=== PATIENT | female | born 1960 | race Caucasian/White ===

== ENCOUNTER 2018-10-21 13:26 | Emergency (ER) | payer BC ==
--- NOTE | 2018-10-21 14:14 | ED ---
Shortness of Breath - HPI Summary HPI Summary: A 58 y/o female presents to [facility] with a chief complaint of SOB since 10/14/18. She claims that on 10/18/16 she was put on a nebulizer. She was also recently taken off of Flovent and put on Advair and was given an emergency inhaler. At triage she rated her pain as a 0/10 in severity, claiming that she feels throat tightness and also c/o cough. She says that four after she uses the nebulizer, her symptoms worsen. She reports that Kathy Metz has prescribed her nebulizer. She is currently on day 9 of prednisone, which has been tapered down to 20mg currently. 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 Hx of pneumonitis 4 years ago. She does not believe that she has pneumonia. She was trying to see her master merchandiser Dr. Mccauley, but she wouldnt be able to get an appointment until next week and so she came to the ED. - History of Current Complaint Chief Complaint: EDShortnessOfBreath Time Seen by Provider: 10/21/18 13:57 Hx Obtained From: Patient Onset/Duration: Sudden Onset, Lasting Days, Still Present Timing: Constant Current Severity: Mild Dyspnea At: Rest Aggrevating Factors: Nothing Alleviating Factors: Other - nebulizer Associated Signs & Symptoms: Cough (Nonproductive) - Allergy/Home Medications Allergies/Adverse Reactions: Allergies Allergy/AdvReac Type Severity Reaction Status Date / Time codeine Allergy Dizziness Verified 10/21/18 14:43 Home Medications: Home Medications Albuterol HFA INHALER* [Ventolin HFA Inhaler*] 1 puff INH Q6H PRN 10/21/18 [ History Confirmed 10/21/18] Benzonatate CAP* [Tessalon 100 MG CAP*] 100 mg PO TID PRN 10/21/18 [History Confirmed 10/21/18] Fluticasone HFA 110 mcg(NF) [Flovent HFA 110 mcg(NF)] 2 puff INH BID 10/21/18 [ History Confirmed 10/21/18] Fluticasone-Salmeterol 250-50* [Advair Diskus 250-50*] 1 puff INH BID 10/21/18 [ History Confirmed 10/21/18] Hydrochlorothiazide TAB* [Hydrodiuril TAB*] 25 mg PO DAILY 10/21/18 [History Confirmed 10/21/18] Ipratropium/Albuterol Sulfate [Iprat-Albut 0.5-3(2.5) mg/3 ml] 3 ml INH TID PRN 10/21/18 [History Confirmed 10/21/18] predniSONE TAB* [Deltasone 10 MG TAB*] 20 mg PO DAILY 10/21/18 [History Confirmed 10/21/18] PMH/Surg Hx/FS Hx/Imm Hx Endocrine/Hematology History: Denies: Hx Diabetes, Hx Thyroid Disease Cardiovascular History: Reports: Hx Hypertension Denies: Hx Pacemaker/ICD Respiratory History: Reports: Hx Asthma Denies: Hx Chronic Obstructive Pulmonary Disease (COPD) GI History: Denies: Hx Ulcer History: Denies: Hx Renal Disease Musculoskeletal History: Denies: Hx Rheumatoid Arthritis, Hx Osteoporosis Sensory History: Denies: Hx Hearing Aid Psychiatric History: Denies: Hx Panic Disorder - Cancer History Hx Chemotherapy: No Hx Radiation Therapy: No - Surgical History Surgery Procedure, Year, and Place: hysterectomy 1998 [place] 2008 csection 1989 [place] breast biopsies - all benign gb removed 6 yrs ago Infectious Disease History: No Infectious Disease History: Denies: Hx Hepatitis, Hx Human Immunodeficiency Virus (HIV), Traveled Outside the [place] in Last 30 Days - Family History Known Family History: Negative: Cardiac Disease, Hypertension, Diabetes - Social History Alcohol Use: Weekly Substance Use Type: Reports: None Hx Tobacco Use: No Smoking Status (MU): Never Smoked Tobacco Review of Systems Negative: Fever ENT: Other - Positive: throat tightness Positive: Shortness Of Breath, Cough All Other Systems Reviewed And Are Negative: Yes Physical Exam - Summary Physical Exam Summary: Appearance: The patient is well-nourished in no acute distress and in no acute pain. Skin: The skin is warm and dry and skin color reflects adequate perfusion. HEENT: The head is normocephalic and atraumatic. The pupils are equal and reactive. The conjunctivae are clear and without drainage. No nystagmus. Nares are patent and without drainage. Mouth reveals moist mucous membranes and the throat is without erythema and exudate. The external ears are intact. The ear canals are patent and without drainage. The tympanic membranes are intact. Neck: The neck is supple with full range of motion and non-tender. There are no carotid bruits. There is no neck vein distension. Respiratory: Chest is non-tender. Lungs are clear to auscultation and breath sounds are symmetrical and equal. Cardiovascular: Heart is regular rate and rhythm. There is no murmur or rub auscultated. There is no peripheral edema and pulses are symmetrical and equal. Abdomen: The abdomen is soft and non-tender. There are normal bowel sounds heard in all four quadrants and there is no organomegaly palpated. Musculoskeletal: There is no back tenderness noted. Extremities are non-tender with full range of motion. There is good capillary refill. There is no peripheral edema or calf tenderness elicited. Neurological: Patient is alert and oriented to person, place and time. The patient has symmetrical motor strength in all four extremities. Cranial nerves are grossly intact. Deep tendon reflexes are symmetrical and equal in all four extremities. Psychiatric: The patient has an appropriate affect and does not exhibit any anxiety or depression. Triage Information Reviewed: Yes Vital Signs On Initial Exam: Initial Vitals Temp Pulse Resp BP Pulse Ox 97.4 F 111 22 167/96 97 10/21/18 13:32 10/21/18 13:32 10/21/18 13:32 10/21/18 13:32 10/21/18 13:32 Vital Signs Reviewed: Yes Diagnostics - Vital Signs Vital Signs Temp Pulse Resp BP Pulse Ox 10/21/18 13:32 97.4 F 111 22 167/96 97 - Laboratory Lab Statement: Any lab studies that have been ordered have been reviewed, and results considered in the medical decision making process. Re-Evaluation - Re-Evaluation First Eval Re-Evaluation Time: 15:26 Change: Improved Comment: Patient is ready for discharge Course/Dx - Course Course Of Treatment: Ms. Jasmine presents complaining that she is not getting any better. She has been being treated for bronchitis with bronchospasm through Dr. Lazar and is currently on a tapered dose of prednisone, duo nebs, 3 inhalers including Advair and Tessalon. She is nontoxic in appearance with stable vital signs and clear lungs. She reports that she used her duo neb just prior to coming in and expects that it will wear off in about 4 hours. I'm not sure what I can offer her and I spoke with Dr. Mccauley who recommended increasing the prednisone and follow-up with her on Thursday morning. The patient is in agreement with this. - Diagnoses Provider Diagnoses: Bronchitis - Physician Notifications Discussed Care of Patient With: Purnima Mccauley Time Discussed With Above Provider: 15:19 Instructed by Provider To: Other - Recommends discharge and follow up the morning of 10/18/18 Discharge - Sign-Out/Discharge Documenting (check all that apply): Patient Departure - DC Patient Received Moderate/Deep Sedation with Procedure: No - Discharge Plan Condition: Stable Disposition: HOME Prescriptions: predniSONE [Deltasone 20 MG TAB] 40 mg PO BID #40 tablet Forms: *Work Release Referrals: Purnima Mccauley MD [Medical Doctor] - Additional Instructions: Follow up with Dr. Mccauley the morning of 10/25/18. Return to the ED if you experience any new or worsening symptoms. - Billing Disposition and Condition Condition: STABLE Disposition: Home - Attestation Statements Document Initiated by Dianelysibe: Yes Documenting Scribe: Wilmar Chavez Provider For Whom Scribe is Documenting (Include Credential): Sam Davis MD Scribe Attestation: IWilmar, scribed for Sam Davis MD on 10/21/18 at 1736. Scribe Documentation Reviewed: Yes Provider Attestation: The documentation as recorded by the Wilmar gracia accurately reflects the service I personally performed and the decisions made by , Sam Davis MD Status of Scribe Document: Viewed
[2018-10-21 16:16] VITALS: BP 139/92
== END 2018-10-21 16:14 | disposition home or self-care (01) ==
LOC: ED 13:26
DX: J45.909 Unspecified asthma, uncomplicated (principal); I10 Essential (primary) hypertension; Z88.5 Allergy status to narcotic agent
CPT/HCPCS: 99282

== ENCOUNTER 2018-11-21 23:29 | Emergency (ER) | payer BC ==
[2018-11-22 00:16] LABS: ABS Basophils 0 10^3/ul (0-0.2); ABS Eosinophils 0.1 10^3/ul (0-0.6); ABS Monocytes 0.5 10^3/ul (0-0.8); ABS Neutrophils 3.4 10^3/ul (1.5-7.7); ABS Nucleated RBC 0 10^3/ul; Eosinophil % 0.9 %; Hematocrit 41 % (35-47); Hemoglobin 13.7 g/dl (12.0-16.0); Lymphocyte % 32.8 %; Mean Corpuscular HGB Conc 33 g/dl (31-36); Mean Corpuscular Hemoglobin 29 pg (27-31); Mean Corpuscular Volume 88 fL (80-97); Mean Platelet Volume 7.2 fL (7.4-10.4); Nucleated Red Blood Cells % 0; Platelet Count 429 10^3/ul (150-450); Red Blood Count 4.67 10^6/ul (4.00-5.40); Red Cell Distribution Width 15 % (10.5-15)
[2018-11-22 00:23] LABS: INR 0.84 (0.77-1.02)
[2018-11-22 00:42] LABS: Albumin 4.4 g/dL (3.2-5.2); Albumin/Globulin Ratio 1.8 (1-3); BUN/Creatinine Ratio 32.9 (8-20); C Reactive Protein 1.58 mg/L (<8.01); Calcium 9.1 mg/dL (8.6-10.3); EGFR African American 90.4 (>60); EGFR Non-African American 74.7 (>60); Globulin 2.4 g/dL (2-4); Magnesium 2.3 mg/dL (1.9-2.7); Potassium 3.3 mmol/L (3.5-5.0); Total Bilirubin 0.4 mg/dL (0.2-1.0); Total Protein 6.8 g/dL (6.4-8.9)
[2018-11-22 01:03] LABS: TSH (Thyroid Stimulating Horm) 3.49 mcIU/mL (0.34-5.60)
[2018-11-22] MEDS ORDERED: hydrOXYzine HCL TAB* 25 MG PO ONE (01:07)
--- NOTE | 2018-11-22 01:09 | ED ---
Shortness of Breath - HPI Summary HPI Summary: Patient with history of ongoing pulmonary symptoms of bronchitis 7 weeks complains of new onset left sided chest pain and left upper back pain starting yesterday. Patient states symptoms lasted for about 3 hours yesterday and self resolved. Patient stated she woke up with symptoms and they have been constant all day long today. Pain is worse with deep inhalation and movement. States she has sensation of shortness of breath. Patient weaned off prednisone 5 days ago by PCP, but has 2 steroid inhalers plus nebulizer. States nebulizer has been providing some minor relief. Denies trauma, fever, cough, sore throat, BUSCH , neck stiffness, N/V/D, abdominal pain, change in urine, change in BM. Medical history is asthma, HTN. 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 Patient also denies history of blood clots, estrogen supplements, recent surgery or trauma, history of mobility, history of cancer. 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 Onset/Duration: Sudden Onset Timing: Constant Current Severity: Moderate Dyspnea At: Rest Aggrevating Factors: Movement, Deep Breaths Associated Signs & Symptoms: Negative - Allergy/Home Medications Allergies/Adverse Reactions: Allergies Allergy/AdvReac Type Severity Reaction Status Date / Time codeine Allergy Dizziness Verified 11/21/18 23:32 PMH/Surg Hx/FS Hx/Imm Hx Endocrine/Hematology History: Denies: Hx Diabetes, Hx Thyroid Disease Cardiovascular History: Reports: Hx Hypertension Denies: Hx Pacemaker/ICD Respiratory History: Reports: Hx Asthma Denies: Hx Chronic Obstructive Pulmonary Disease (COPD) GI History: Denies: Hx Ulcer History: Denies: Hx Renal Disease Musculoskeletal History: Denies: Hx Rheumatoid Arthritis, Hx Osteoporosis Sensory History: Denies: Hx Hearing Aid Opthamlomology History: Denies: Hx Eye Injury, Hx Eye Prosthesis EENT History: Denies: Hx Hearing Problem Neurological History: Denies: Hx Dementia Psychiatric History: Denies: Hx Panic Disorder - Cancer History Hx Chemotherapy: No Hx Radiation Therapy: No - Surgical History Surgery Procedure, Year, and Place: hysterectomy 1998 [place] 2007 csection 1989 [place] breast biopsies - all benign gb removed 6 yrs ago Infectious Disease History: No Infectious Disease History: Denies: Hx Hepatitis, Hx Human Immunodeficiency Virus (HIV), Traveled Outside the [place] in Last 30 Days - Family History Known Family History: Negative: Cardiac Disease, Hypertension, Diabetes - Social History Alcohol Use: None Substance Use Type: Reports: None Hx Tobacco Use: No Smoking Status (MU): Never Smoked Tobacco Review of Systems Constitutional: Negative Eyes: Negative ENT: Negative Positive: Chest Pain Positive: Shortness Of Breath Gastrointestinal: Negative Genitourinary: Negative Musculoskeletal: Negative Skin: Negative Neurological: Negative Psychological: Normal All Other Systems Reviewed And Are Negative: Yes Physical Exam - Summary Physical Exam Summary: Chest pain and back pain not reproducible. Lung sounds clear to auscultation bilaterally. Heart RRR. Abdomen soft nontender. No evidence of trauma to chest or shoulder. No pain with palpation of same. Triage Information Reviewed: Yes Vital Signs On Initial Exam: Initial Vitals Temp Pulse Resp BP Pulse Ox 96.9 F 73 18 176/116 100 11/21/18 23:31 11/21/18 23:31 11/21/18 23:31 11/21/18 23:31 11/21/18 23:31 Vital Signs Reviewed: Yes Appearance: Positive: Well-Appearing Skin: Positive: Warm Head/Face: Positive: Normal Head/Face Inspection Eyes: Positive: Normal Neck: Positive: Supple Respiratory/Lung Sounds: Positive: Clear to Auscultation Cardiovascular: Positive: Normal Abdomen Description: Positive: Nontender Musculoskeletal: Positive: Normal Neurological: Positive: Normal Psychiatric: Positive: Normal AVPU Assessment: Alert - Bennie Coma Scale Best Eye Response: 4 - Spontaneous Best Motor Response: 6 - Obeys Commands Best Verbal Response: 5 - Oriented Coma Scale Total: 15 Diagnostics - Vital Signs Vital Signs Temp Pulse Resp BP Pulse Ox 11/22/18 00:54 97.5 F 70 16 159/92 100 11/21/18 23:31 96.9 F 73 18 176/116 100 - Laboratory Lab Results: Lab Results 11/22/18 11/22/18 11/22/18 Range/Units 00:05 00:05 00:05 WBC 6.0 (3.5-10.8) 10^3/ul RBC 4.67 (4.00-5.40) 10^6/ul Hgb 13.7 (12.0-16.0) g/dl Hct 41 (35-47) % MCV 88 (80-97) fL MCH 29 (27-31) pg MCHC 33 (31-36) g/dl RDW 15 (10.5-15) % Plt Count 429 (150-450) 10^3/ul MPV 7.2 L (7.4-10.4) fL Neut % (Auto) 57.4 % Lymph % (Auto) 32.8 % Greene % (Auto) 8.1 % Eos % (Auto) 0.9 % Baso % (Auto) 0.8 % Absolute Neuts (auto) 3.4 (1.5-7.7) 10^3/ul Absolute Lymphs (auto) 2.0 (1.0-4.8) 10^3/ul Absolute Monos (auto) 0.5 (0-0.8) 10^3/ul Absolute Eos (auto) 0.1 (0-0.6) 10^3/ul Absolute Basos (auto) 0 (0-0.2) 10^3/ul Absolute Nucleated RBC 0 10^3/ul Nucleated RBC % 0 INR (Anticoag Therapy) 0.84 (0.77-1.02) D-Dimer, Quantitative < 200 (Less Than 230) ng/mL Sodium 137 (135-145) mmol/L Potassium 3.3 L (3.5-5.0) mmol/L Chloride 101 (101-111) mmol/L Carbon Dioxide 30 (22-32) mmol/L Anion Gap 6 (2-11) mmol/L BUN 26 H (6-24) mg/dL Creatinine 0.79 (0.51-0.95) mg/dL Est GFR ( Amer) 90.4 (>60) Est GFR (Non-Af Amer) 74.7 (>60) BUN/Creatinine Ratio 32.9 H (8-20) Glucose 95 (70-100) mg/dL Calcium 9.1 (8.6-10.3) mg/dL Magnesium 2.3 (1.9-2.7) mg/dL Total Bilirubin 0.40 (0.2-1.0) mg/dL AST 24 (13-39) U/L ALT 28 (7-52) U/L Alkaline Phosphatase 52 (34-104) U/L Troponin I 0.00 (<0.04) ng/mL C-Reactive Protein 1.58 (<8.01) mg/L Total Protein 6.8 (6.4-8.9) g/dL Albumin 4.4 (3.2-5.2) g/dL Globulin 2.4 (2-4) g/dL Albumin/Globulin Ratio 1.8 (1-3) TSH 3.49 (0.34-5.60) mcIU/mL Result Diagrams: 11/22/18 00:05 11/22/18 00:05 Lab Statement: Any lab studies that have been ordered have been reviewed, and results considered in the medical decision making process. Course/Dx - Course Course Of Treatment: Patient with history of ongoing pulmonary symptoms of bronchitis 7 weeks complains of new onset left sided chest pain and left upper back pain starting yesterday. Patient states symptoms lasted for about 3 hours yesterday and self resolved. Patient stated she woke up with symptoms and they have been constant all day long today. Pain is worse with deep inhalation and movement. States she has sensation of shortness of breath. Patient weaned off prednisone 5 days ago by PCP, but has 2 steroid inhalers plus nebulizer. States nebulizer has been providing some minor relief. Denies trauma, fever, cough, sore throat, BUSCH, neck stiffness, N/V/D, abdominal pain, change in urine, change in BM. Medical history is asthma, HTN. 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 Patient also denies history of blood clots, estrogen supplements, recent surgery or trauma, history of mobility, history of cancer. Physical exam :Chest pain and back pain not reproducible. Lung sounds clear to auscultation bilaterally. Heart RRR. Abdomen soft nontender. No evidence of trauma to chest or shoulder. No pain with palpation of same. Vital signs within normal limits. Labs unremarkable. D-dimer negative. Chest x-ray unremarkable. EKG sinus rhythm. Diagnosis atypical chest pain. Advised patient to follow-up with primary care and bottle assembler. Patient understands and approves of plan. - Diagnoses Provider Diagnoses: Atypical chest pain Discharge - Sign-Out/Discharge Documenting (check all that apply): Patient Departure Patient Received Moderate/Deep Sedation with Procedure: No - Discharge Plan Condition: Stable Disposition: HOME Prescriptions: hydrOXYzine HCl [Hydroxyzine HCl] 25 mg PO DAILY 10 Days #10 tablet Patient Education Materials: Chest Pain (ED) Referrals: Leilani Cho MD [Primary Care Provider] - Additional Instructions: Continue using nebulizer. Continue taking Aleve. Follow-up with your bottle assembler. Return to the ED for any new or worsening symptoms. - Billing Disposition and Condition Condition: STABLE Disposition: Home
[2018-11-22 01:11] LABS: Urine Appearance Clear; Urine Bacteria Absent (Absent); Urine Bilirubin Negative (Negative); Urine Blood Negative (Negative); Urine Color Yellow; Urine Glucose Negative (Negative); Urine Ketones Negative (Negative); Urine Nitrite Negative (Negative); Urine Protein Negative (Negative); Urine Red Blood Cell Trace(0-2/hpf) (Absent); Urine Specific Gravity 1.017 (1.010-1.030); Urine Squamous Epithelial Cell Present (Absent); Urine Urobilinogen Negative (Negative); Urine White Blood Cell 2+(11-20/hpf) (Absent)
[2018-11-22 01:39] VITALS: BP 0/0
== END 2018-11-22 01:37 | disposition home or self-care (01) ==
LOC: ED 23:29
DX: R07.89 Other chest pain (principal); M54.6 Pain in thoracic spine; R06.02 Shortness of breath; I10 Essential (primary) hypertension; J45.909 Unspecified asthma, uncomplicated; Z88.5 Allergy status to narcotic agent
CPT/HCPCS: 36415; 71046; 80053; 81003; 81015; 83735; 84443; 84484; 85025; 85379; 85610; 86140; 87086; 93005; 99282; A9270-GY